=== PATIENT | female | born 1990 | race Hispanic/Latino ===

== ENCOUNTER 2024-10-04 21:29 | Emergency (ER) | payer OTHER, SELFPAY ==
[2024-10-04] MEDS ORDERED: KETOROLAC 30 MG/ML INJ ONE (23:15)
[2024-10-04] MEDS ORDERED: ONDANSETRON 4 MG/2 ML VIAL ONE (23:15)
[2024-10-04] MEDS ORDERED: NA CHLORIDE 0.9% 1,000 ML ONE (23:15)
[2024-10-04 23:34] LABS: Absolute Basophils 0.1 K/uL (0-0.5); Absolute Eosinophils 0.1 K/uL (0-0.5); Absolute Lymphocytes (CBC) 1.9 K/uL (0.7-4.9); Absolute Monocytes 0.8 K/uL (0.1-1.3); Absolute Neutrophil 11.7 K/uL (1.8-8.0); Basophils % 0.5 % (0-1.3); Eosinophils % 0.5 % (0-4.4); Hematocrit 39.2 % (36.0-45.0); Hemoglobin 13.4 g/dL (12.0-15.0); MCH 30.4 pg (27.0-35.0); MCHC 34.2 g/dL (32.0-36.0); MCV 88.9 fL (80-100); MPV 8.1 fL (7.6-11.3); Monocytes % 5.2 % (3.3-12.3); Neutrophils % 80.8 % (41.7-73.7); Nucleated Red Blood Cells % 0.1 % (0-0); Platelets 427 thou/uL (152-406); Red Cell Distribution Width 13.3 % (12.1-15.2)
[2024-10-04 23:52] LABS: Albumin/Globulin Ratio 0.9 (1.1-1.8); Anion Gap 10.3 mEq/L (5.0-15.0); Bilirubin Total 0.2 mg/dL (0.2-1.0); Globulin 4.5 g/dL (2.3-3.5); Potassium 3.3 mEq/L (3.5-5.1); Protein, Total 8.5 g/dL (6.4-8.2)
[2024-10-05 01:36] LABS: Specific Gravity > 1.030 (1.005-1.030); Sqamous Epithelial None Seen /HPF (None Seen); Urine Bacteria None Seen /HPF (<20); Urine Bilirubin NEGATIVE (Negative); Urine Blood 3+ (OVER) (Negative); Urine Clarity Extremely Turbid (Clear); Urine Color Yellow (Yellow); Urine Culture Reflex Order NOT NEEDED; Urine Glucose NEGATIVE (Negative); Urine Ketones TRACE (Negative); Urine Microscopic Reflex YN ORDER UMIC; Urine Mucus 3+ /HPF (None Seen); Urine Nitrite NEGATIVE (Negative); Urine Protein 1+ (Negative); Urine RBC >50 /HPF (None Seen); Urine Urobilinogen Normal (Normal); Urine WBC <5 /HPF (<5)
[2024-10-05] MEDS ORDERED: ONDANSETRON 4 MG/2 ML VIAL ONE (01:58)
[2024-10-05] MEDS ORDERED: MORPHINE 4 MG/ML SYR ONE (01:59)
--- NOTE | 2024-10-05 02:52 | ER ---
Nurse's Notes [facility] Name: Annetta Boyer Age: 33 yrs Sex: Female : 1990 Arrival Date: 10/04/2024 Time: 21:29 Bed DX3 Private MD: Diagnosis: Calculus of ureter Presentation: 10/04 21:41 Chief complaint: Patient states: sudden onset of left sided flank pain and pI cant bm8 empty my bladder. Coronavirus screen: Vaccine status: Patient reports being unvaccinated. At this time, the client does not indicate any symptoms associated with coronavirus-19. Ebola Screen: Patient negative for fever greater than or equal to 101.5 degrees Fahrenheit, and additional compatible Ebola Virus Disease symptoms Patient denies exposure to infectious person. Patient denies travel to an Ebola-affected area in the 21 days before illness onset. No symptoms or risks identified at this time. Initial Sepsis Screen: Does the patient meet any 2 criteria? No. Patient's initial sepsis screen is negative. Does the patient have a suspected source of infection? No. Patient's initial sepsis screen is negative. Risk Assessment: Do you want to hurt yourself or someone else? Patient reports no desire to harm self or others. Onset of symptoms was October 04, 2024 at 19:30. 21:41 Method Of Arrival: Ambulatory bm8 21:41 Acuity: GILA 3 bm8 Triage Assessment: 21:42 General: Appears distressed, uncomfortable, Behavior is calm, cooperative, appropriate bm8 for age. Pain: Complains of pain in posterior aspect of left lateral abdomen and anterior aspect of left lateral abdomen Pain currently is 10 out of 10 on a pain scale. Quality of pain is described as sharp. EENT: No deficits noted. No signs and/or symptoms were reported regarding the EENT system. Neuro: No deficits noted. Level of Consciousness is awake, alert, obeys commands, Oriented to person, place, time, situation, Appropriate for age. Cardiovascular: Denies chest pain, Heart tones S1 S2 Capillary refill < 3 seconds in bilateral fingers Patient's skin is warm and dry. Respiratory: Airway is patent Trachea midline Respiratory effort is even, unlabored, Respiratory pattern is regular, symmetrical, Breath sounds are clear bilaterally. GI: Reports lower abdominal pain, upper abdominal pain, nausea, Pain is 10 out of 10 on a pain scale. pain is in left lfank. : Reports inability to void, pain in left flank(s). Derm: No signs and/or symptoms reported regarding the dermatologic system. Musculoskeletal: No signs and/or symptoms reported regarding the musculoskeletal system. 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 - Infectious Disease History:: Denies. - Social history:: Smoking status: Patient denies any tobacco usage or history of. Patient/guardian denies using alcohol, street drugs. Screenin:[address] [facility] ED Fall Risk Assessment (Adult) History of falling in the last 3 months, lg3 including since admission No falls in past 3 months (0 pts) Confusion or Disorientation No (0 pts) Intoxicated or Sedated No (0 pts) Impaired Gait No (0 pts) Mobility Assist Device Used No (0 pt) Altered Elimination No (0 pt) Score/Fall Risk Level 0 - 2 = Low Risk Oriented to surroundings, Maintained a safe environment, Educated pt \T\ family on fall prevention, incl call for assistance when getting out of bed, Assessed \T\ reinforced patient's understanding of fall precautions. Abuse screen: Denies threats or abuse. Denies injuries from another. Nutritional screening: No deficits noted. Tuberculosis screening: No symptoms or risk factors identified. Assessment: 23:19 General: Appears in no apparent distress. uncomfortable, Behavior is calm, cooperative. lg3 Pain: Complains of pain in abdomen Pain radiates to back Pain currently is 8 out of 10 on a pain scale. Neuro: No deficits noted. Tucker Agitation-Sedation Scale (RASS): 0 - Alert and Calm Level of Consciousness is awake, alert, obeys commands, Oriented to person, place, time, situation. Cardiovascular: No deficits noted. Denies chest pain, shortness of breath, Capillary refill < 3 seconds Clubbing of nail beds is absent JVD is absent Patient's skin is warm and dry. Respiratory: No deficits noted. Airway is patent Respiratory effort is even, unlabored, Respiratory pattern is regular, symmetrical. GI: Abdomen is round non-distended, Abd is soft X 4 quads Reports lower abdominal pain, cramping, nausea, vomiting. : Reports inability to void, pain. EENT: No deficits noted. No signs and/or symptoms were reported regarding the EENT system. Derm: No deficits noted. No signs and/or symptoms reported regarding the dermatologic system. Skin is intact, is healthy with good turgor, Skin is dry, Skin is normal, Skin temperature is warm. Musculoskeletal: No deficits noted. No signs and/or symptoms reported regarding the musculoskeletal system. Circulation, motion, and sensation intact. Range of motion: intact in all extremities. 10/05 03:07 Reassessment: Patient appears in no apparent distress at this time. No changes from lg3 previously documented assessment. Patient and/or family updated on plan of care and expected duration. Pain level reassessed. Patient is alert, oriented x 3, equal unlabored respirations, skin warm/dry/pink. Patient states feeling better. Patient states symptoms have improved. Vital Signs: 10/04 21:41 BP 145 / 90; Pulse 116; Resp 18; Temp 98.4; Pulse Ox 100% ; Weight 90.72 kg; Height 5 bm8 ft. 2 in. ; Pain 10/10; 10/05 01:57 BP 113 / 58; Pulse 74; Resp 18; Pulse Ox 98% on R/A; af3 03:07 BP 119 / 59; Pulse 77; Resp 17 S; Pulse Ox 99% on R/A; lg3 10/04 21:41 Body Mass Index 36.58 (90.72 kg, 157.48 cm) bm8 10/04 21:41 Pain Scale: Adult bm8 ED Course: 10/04 21:30 Patient arrived in ED. im 21:36 Eddie Oreilly MD is Attending Physician. ec2 21:42 Triage completed. bm8 21:42 Arm band placed on right wrist. bm8 23:18 CBC with Diff Sent. cg 23:18 CMP Sent. cg 23:18 Lipase Sent. cg 23:19 Patient has correct armband on for positive identification. Warm blanket given. lg3 23:19 Inserted saline lock: 20 gauge in left antecubital area, using aseptic technique. Blood lg3 collected. Flushed with 10 mL NS. Patient maintains SpO2 saturation greater than 95% on room air. 10/05 00:07 Radiology exam delayed due to test not completed at this time. ag6 01:02 CT Abd/Pelvis - Without Contrast In Process Unspecified. EDMS 02:52 Sim Guo MD is Referral Physician. ec2 03:07 No provider procedures requiring assistance completed. IV discontinued, intact, lg3 bleeding controlled, No redness/swelling at site. Pressure dressing applied. Administered Medications: 10/04 23:22 Drug: TORadol - Ketorolac IVP 15 mg IVP once Route: IVP; Site: left antecubital; lg3 10/05 03:08 Follow up: Response: No adverse reaction lg3 10/04 23:22 Drug: Ondansetron IVP 4 mg IVP once; over 2 minutes Route: IVP; Site: left antecubital; lg3 10/05 03:08 Follow up: Response: No adverse reaction lg3 10/04 23:22 Drug: NS 0.9% IV 1000 ml IV at 1 bolus Per protocol; to be given as a bolus over 60 lg3 minutes Route: IV; Rate: 1 bolus; Site: left antecubital; 10/05 03:08 Follow up: Response: No adverse reaction; IV Status: Completed infusion; IV Intake: lg3 1000ml 02:01 Drug: morphine IVP or IV 4 mg IVP once over 4 mins Route: IVP; Infused Over: 4 mins; lg3 Site: left antecubital; 03:08 Follow up: Response: No adverse reaction; Marked relief of symptoms lg3 02:01 Drug: Ondansetron IVP 4 mg IVP once; over 2 minutes Route: IVP; Site: left antecubital; lg3 03:08 Follow up: Response: No adverse reaction; Marked relief of symptoms lg3 Medication: 10/04 23:19 VIS not applicable for this client. lg3 Intake: 10/05 03:08 IV: 1000ml; Total: 1000ml. lg3 Outcome: 02:52 Discharge ordered by . ec2 03:07 Discharged to home ambulatory, with significant other, lg3 03:07 Condition: stable 03:07 Discharge instructions given to patient, Instructed on discharge instructions, follow up and referral plans. medication usage, Demonstrated understanding of instructions, follow-up care, medications, Prescriptions given X 2, 03:09 Patient left the ED. lg3 Signatures: Dispatcher [employer] Lucila Ryan, RN RN Rogelio [facility] Keila Orellana RN RN lg3 Jeanne Morocho Edwin, MD MD ec2 Ervin Colorado RN RN bm8 [place], [place] [address]
--- NOTE | 2024-10-05 02:52 | EDPHYS ---
Physician Documentation [facility] Name: Annetta Boyer Age: 33 yrs Sex: Female : 1990 Arrival Date: 10/04/2024 Time: 21:29 Bed DX3 Private MD: ED Physician Eddie Oreilly HPI: 10/04 23:21 This 33 yrs old Female presents to ER via Ambulatory with complaints of ec2 Urinary Problem. 23:21 Patient arrives today for left-sided abdominal pain to the flank. Reports difficulty ec2 with urinating. Patient reports no fevers or chills, no dysuria.. 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 - Infectious Disease History:: Denies. - Social history:: Smoking status: Patient denies any tobacco usage or history of. Patient/guardian denies using alcohol, street drugs. ROS: 23:22 Constitutional: as per hpi ec2 Exam: 23:22 Constitutional: GEN: NAD Head: atraumatic Eyes: EOMI Ears: External ears are ec2 normal. CV: Tachycardia LUNGS: no respiratory distress ABD: non-distended, soft, tender left abdomen, not guarding SKIN: no evidence of rashes MSK: no evidence of trauma Vital Signs: 21:41 BP 145 / 90; Pulse 116; Resp 18; Temp 98.4; Pulse Ox 100% ; Weight 90.72 kg; Height 5 bm8 ft. 2 in. ; Pain 10/10; 10/05 01:57 BP 113 / 58; Pulse 74; Resp 18; Pulse Ox 98% on R/A; af3 03:07 BP 119 / 59; Pulse 77; Resp 17 S; Pulse Ox 99% on R/A; lg3 10/04 21:41 Body Mass Index 36.58 (90.72 kg, 157.48 cm) bm8 10/04 21:41 Pain Scale: Adult bm8 MDM: 10/04 21:36 Medical Screening Exam initiated ec2 23:22 Data reviewed: vital signs, nurses notes. ED course: Patient arrives today for ec2 left-sided abdominal pain. Examination yields abdominal findings above. Will obtain lab work, urine studies, CT imaging.. 10/05 02:51 ED course: CT imaging shows left distal ureteral stone at 0.2 cm, will discharge home ec2 with prescription for pain meds and have the patient follow-up with urology as needed. Return precautions given.. 10/04 21:47 Order name: CBC with Diff; Complete Time: 00:06 ec2 10/04 21:47 Order name: CMP; Complete Time: 00:06 ec2 10/04 21:47 Order name: Lipase; Complete Time: 00:06 ec2 10/04 21:47 Order name: Urinalysis w/ reflexes; Complete Time: 01:37 ec2 10/05 00:07 Order name: Test, Serum; Complete Time: 00:57 ec2 10/04 21:47 Order name: CT Abd/Pelvis - Without Contrast ec2 10/04 21:47 Order name: IV Saline Lock; Complete Time: 23:18 ec2 10/04 21:47 Order name: Labs collected and sent; Complete Time: 23:22 ec2 10/05 01:36 Order name: Vital Signs; Complete Time: 01:57 ec2 Administered Medications: 10/04 23:22 Drug: TORadol - Ketorolac IVP 15 mg IVP once Route: IVP; Site: left antecubital; lg3 10/05 03:08 Follow up: Response: No adverse reaction lg3 10/04 23:22 Drug: Ondansetron IVP 4 mg IVP once; over 2 minutes Route: IVP; Site: left antecubital; lg3 10/05 03:08 Follow up: Response: No adverse reaction lg3 10/04 23:22 Drug: NS 0.9% IV 1000 ml IV at 1 bolus Per protocol; to be given as a bolus over 60 lg3 minutes Route: IV; Rate: 1 bolus; Site: left antecubital; 10/05 03:08 Follow up: Response: No adverse reaction; IV Status: Completed infusion; IV Intake: lg3 1000ml 02:01 Drug: morphine IVP or IV 4 mg IVP once over 4 mins Route: IVP; Infused Over: 4 mins; lg3 Site: left antecubital; 03:08 Follow up: Response: No adverse reaction; Marked relief of symptoms lg3 02:01 Drug: Ondansetron IVP 4 mg IVP once; over 2 minutes Route: IVP; Site: left antecubital; lg3 03:08 Follow up: Response: No adverse reaction; Marked relief of symptoms lg3 Disposition Summary: 10/05/24 02:52 Discharge Ordered Notes: Location: Home ec2 Condition: Stable ec2 Diagnosis - Calculus of ureter ec2 Followup: ec2 - With: Sim Guo MD - When: - Reason: Recheck today's complaints Discharge Instructions: - Discharge Summary Sheet ec2 - Kidney Stones, [id number] ec2 Forms: - Medication Reconciliation Form ec2 - Antibiotic Education ec2 - Prescription Opioid Use ec2 - Patient Portal Instructions ec2 - Leadership Thank You Letter ec2 Prescriptions: - Acetaminophen with Codeine- 300mg-30mg - take 1 tablet ORAL route every 4 hours; 15 tablet; Refills: 0, Product ec2 Selection Permitted - Zofran 4 mg Oral Tablet - take 1 tablet ORAL route every 12 hours As needed; 20 tablet; Refills: 0, ec2 Product Selection Permitted Signatures: Dispatcher [employer] Keila Miles, RN RN lg3 Eddie Oreilly MD MD ec2 Ervin Colorado RN RN bm8 Corrections: (The following items were deleted from the chart) 10/04 21:47 21:47 Abdomen Pelvis Wo Con+CT.RAD.BRZ ordered. EDMS EDMS 10/05 00:07 00:07 TEST, SERUM+SC.LAB.BRZ ordered. EDMS EDMS 01:05 10/04 21:47 Test, Urine+UC.LAB.BRZ ordered. EDMS EDMS
--- NOTE | 2024-10-05 03:07 | RAD REPORT ---
PROCEDURE: CT Abdomen and Pelvis Without Intravenous Contrast CLINICAL INDICATION: The patient is 33 years old and is Female; Left sided flank pain. TECHNIQUE: Axial computed tomography images of the abdomen and pelvis without intravenous contrast. Sagittal a nd coronal reformatted images were created and reviewed. This CT exam was performed using one or more of the following dose reduction techniques: automated exposure control, adjustment of the mA a nd/or kV according to patient size, and/or use of iterative reconstruction technique. COMPARISON: None. FINDINGS: LUNG BASES: Unremarkable No mass. No consolidation. ABDOMEN: LIVER: Unremarkable GALLBLADDER AND BILE DUCTS: Unremarkable No calcified stones. No ductal dilation. PANCREAS: Unremarkable No ductal dilation. SPLEEN: Unremarkable No splenomegaly. ADRENALS: Unremarkable No mass. KIDNEYS AND URETERS: Tiny bilateral nonobstructive intrarenal stones. 0.2 cm stone demonstrated in the distal left ureter, just proximal to the left UVJ, with mild left-sided ureteral ectasia. STOMACH AND BOWEL: Unremarkable No obstruction. No mucosal thickening. PELVIS: APPENDIX: No findings to suggest acute appendicitis. BLADDER: Unremarkable No stones. REPRODUCTIVE: IUD demonstrated within the endometrial cavity, in appropriate position. ABDOMEN and PELVIS: INTRAPERITONEAL SPACE: Unremarkable No free air. No significant fluid collection. BONES/JOINTS: No acute fracture. No dislocation. SOFT TISSUES: Small fat-containing umbilical hernia. VASCULATURE: Unremarkable No abdominal aortic aneurysm. LYMPH NODES: Unremarkable No enlarged lymph nodes. IMPRESSION: 1. 0.2 cm stone demonstrated in the distal left ureter, just proximal to the left UVJ, with mild le ft-sided ureteral ectasia. 2. Tiny bilateral nonobstructive intrarenal stones. Electronically signed by: Eddie Moreno MD 10/05/2024 02:43 AM CDT Due to temporary technical issues with the PACS/[employer] reporting system, reports are being rosanne d by the in-house radiologist without review as a courtesy to ensure prompt reporting the interpreting radiologist is fully responsible for the content of the report. Transcribed Date/Time: 10/05/2024 3:06 AM
[2024-10-05 03:27] VITALS: TEMP 98.4
[2024-10-05 03:29] VITALS: BP 119/59; O2SAT 99
== END 2024-10-05 03:09 | disposition home or self-care (01) ==
LOC: ER 21:29
DX: N20.1 Calculus of ureter (principal)
CPT/HCPCS: 96361; 85025; 81001; 36415; 84703; 83690; 80053; 74176; 96375; 96374; 99284; J2405 ×2; J7030